=== PATIENT | female | born 1960 | race Caucasian/White ===

== ENCOUNTER 2018-02-18 21:45 | Emergency (ER) | payer MEDICARE, OTHER ==
--- NOTE | 2018-02-18 22:15 | ED Physician Chart ---
ED Chief Complaint/HPI - Patient Information Date Seen:: 02/18/18 Time Seen:: 22:10 Chief Complaint:: fall History of Present Illness:: 57 yr old female from intermediate for possible fall and rt forehead contusion pt has hx of ams uti,sepsis dysphagia dementia parkinsons no other c/os no change ims no vomiting Allergies:: Allergies Allergy/AdvReac Type Severity Reaction Status Date / Time No Known Allergies Allergy Verified 02/18/18 22:00 Vitals:: Vital Signs - 8 hr 02/18/18 21:55 Temp 98.4 F HR 94 RR 18 BP 141/81 O2 Sat % 97 Historian:: EMS, Medical Records ED Review of Systems - Review of Systems Skin: Other (scalp contusion) ED Past Medical History - Past Medical History Past Medical History: Other (ams,uti sepsis dysphagia dementia parkinsons) Family Medical History - Family Member Mother History Unknown: Yes ED Physical Exam - Physical Examination Other Gen/Cons comments:: non verbal Other Head comments:: rt forehead bruise Respiratory: Nl effort/Exclusion Cardio Vascular: No murmur, gallop, rubs (pt not cooperative and not following any commands) ED Assessment - Assessment General Assessment: fall scalp contusion ED Septic Shock - . Is Septic Shock (SBP<90, OR Lactate>4 mmol\L) present?: No - <6hrs of presentation: Vital Signs: Vital Signs - 8 hr 02/18/18 21:55 Temp 98.4 F HR 94 RR 18 BP 141/81 O2 Sat % 97 ED Reassessment (Disposition) - Reassessment Reassessment Condition:: Improved - Diagnosis Diagnosis:: fall scalp contusion ct head ordered if negative discharge back to NH - Patient Disposition Discharge/Transfer:: [facility]
[2018-02-19 04:01] LABS: % BASOPHILS 0.8 % (0.0-2.0); % EOSINOPHILS 3.2 % (0.0-5.0); % LYMPHOCYTES 14.7 % (20.0-50.0); % MONOCYTES 7.5 % (2.0-10.0); % NEUTROPHILS 73.8 % (40.0-80.0); BASOPHILE ABSOLUTE 0.1 Th/cumm (0-0.2); EOSINOPHILE ABSOLUTE 0.3 Th/cmm (0.1-0.4); HEMATOCRIT 38.5 % (41.0-60); HEMOGLOBIN 12.9 gm/dL (12-16); LYMPHOCYTE ABSOLUTE 1.4 Th/cmm (1.5-3.0); MEAN CELL VOLUME 90.7 fl (81-100); MEAN CORPUSCULAR HEMOGLOBIN 30.4 pg (27.0-31.0); MEAN CORPUSCULAR HGB CONC 33.5 pg (28.0-36.0); MEAN PLATELET VOLUME 7.7 fl; MONOCYTE ABSOLUTE 0.7 Th/cmm (0.3-1.0); PLATELET COUNT 399 Th/cmm (150-400); RED BLOOD COUNT 4.25 Mil/cmm (3.80-5.10); RED CELL DISTRIBUTION WIDTH 14.2 % (11.5-20.0); WHITE BLOOD COUNT 9.5 Th/cmm (4.8-10.8)
[2018-02-19 04:18] LABS: ALB/GLOB RATIO 1.5 (1.0-1.8); ALBUMIN 4.2 gm/dL (3.7-5.3); ALKALINE PHOSPHATASE 81 U/L (34-104); ANION GAP 10.8 (7.0-16.0); BILIRUBIN,TOTAL 0.5 mg/dL (0.3-1.0); BUN - UREA NITROGEN 19 mg/dL (7-25); CALCIUM SERUM 9.8 mg/dL (8.6-10.3); CARBON DIOXIDE 27.4 mEq/L (21.0-31.0); CHLORIDE 98 mEq/L (98-107); CREATININE - SERUM 0.8 mg/dL (0.6-1.2); GFR AFRICAN-AMERICAN > 60.0 ml/min (>90); GFR NON AFRICAN-AMERICAN > 60.0 ml/min; GLUCOSE 147 mg/dL (70-105); POTASSIUM SERUM 4.2 mEq/L (3.5-5.1); SGOT 70 U/L (13-39); SGPT/ALT 69 U/L (7-52); SODIUM SERUM 132 mEq/L (136-145); TOTAL PROTEIN,SERUM 7.1 gm/dL (6.0-8.3)
[2018-02-19 06:41] LABS: INR 0.95 (0.5-1.4); PROTHROMBIN TIME (TEST) 9.9 SECONDS (9.5-11.5)
--- NOTE | 2018-02-19 09:08 | Diagnostic Imaging Report ---
Head CT without intravenous contrast Indication: Trauma Comparison: None Technique: Axial images were obtained from the vertex to the skull base without IV contrast. Coronal reconstructions were made. Total DLP: 606, [id number] FINDINGS: Images of the brain obtained on contrast demonstrate primarily isodense right hemispheric subdural hematoma measuring 8 mm from the inner table of the skull to the brain parenchyma. There are punctate areas of high density within this subdural collection. Atrophy is noted. No significant mass effect identified. No midline shift. Mild white matter disease is noted. The ventricles and basal cisterns are patent. No evidence of a skull fracture or focal soft tissue swelling. There is mucosal thickening in the paranasal sinuses. IMPRESSION: Hemispheric right subdural hematoma measuring 8 mm from the inner table of skull to the brain parenchyma in greatest transverse dimension. The subdural hematoma primarily contained isodense components suggestive of a subacute subdural hematoma. There are tiny hyperdense components within this subdural hematoma suggestive of superimposed acute hemorrhage. Clinical correlation and follow-up recommended. No significant mass effect at this time. No midline shift. Atrophy. Critical results were discussed with the referring team on 02/19/2018 and 00:19
== END 2018-02-19 04:10 | disposition short-term general hospital (02) ==
LOC: ER 21:45
DX: S00.03XA Contusion of scalp, initial encounter (principal); W18.39XA Other fall on same level, initial encounter; Y93.89 Activity, other specified; Y92.89 Other specified places as the place of occurrence of the external cause; Y99.8 Other external cause status
CPT/HCPCS: 36415-UA; 70450-TC; 80053-TC; 85025-TC; 85610-TC; 93005